=== PATIENT | female | born 1955 | race Caucasian/White ===

== ENCOUNTER → 2020-09-30 07:21 | Outpatient (CLI) | payer MEDICARE, SELFPAY ==
--- NOTE | ~2020-09-30 | MM_ITS ---
EXAMINATION: MM screening [facility] BI w melvin HISTORY: Screening mammogram TECHNIQUE: Craniocaudal and mediolateral oblique 3-D tomosynthesis images were obtained and synthetic 2-D images were generated. CAD analysis was submitted and interpreted. COMPARISON: 05/08/2019, 05/16/2010 BREAST PARENCHYMAL COMPOSITION: The breasts are almost entirely fatty. FINDINGS: There is no evidence of suspicious mass, calcification, or architectural distortion to sugg est malignancy in either breast. There has been no suspicious interval change. IMPRESSION: 1. No mammographic evidence of malignancy. 2. Recommend routine screening mammography in one year. BI-RADS Category 1: Negative Reviewed, dictated and finalized at location A.
== END ==
PROVIDERS: PCP Internal Medicine; Visit Provider Internal Medicine
DX: Z12.31 Encounter for screening mammogram for malignant neoplasm of breast (principal)
CPT/HCPCS: 77063; 77067

== ENCOUNTER 2024-10-01 13:52 | Outpatient (CLI) | payer MEDICARE, SELFPAY ==
--- NOTE | 2024-10-01 14:19 | ECG_ITS ---
Test Date: 2024-10-01 15:08:29 Measurements Intervals [place] Rate: 82 P: 58 SD: 159 QRS: 34 QRSD: 98 T: 62 QT: 385 QTc: 452 Interpretive Statements SINUS RHYTHM VOLTAGE CRITERIA FOR LVH BASELINE ARTIFACT- I, II, III, AVR, AVL, AVF, V1-V6 BORDERLINE ECG No previous ECG available for comparison Electronically Signed On 10-01-2024 15:33:33 CDT by Dane Baxter D.O.
--- OUTSIDE RECORDS SUMMARY | 2024-10-01 15:00 | XMS_ITS | Data Portability ---
Author Organization [place] - [facility] [employer], Main Office Address [address] [place] [address] Care Team Providers Care Distribution Center Supervisor Name Role Phone GINNA YOUINDER Primary Care Provider Assessment No assessment recorded. Plan of Treatment Reminders Order Date Submit Date Provider Last Modified By Organization Details Last Modified Time Details Appointments None recorded. Lab HbA1c (hemoglobin A1c), blood 2023 024 [email or web address] 82 [facility], [address], [place], [address], 5 15:18:58 CMP, serum or plasma 2023 024 [email or web address] 82 [facility], [address], [place], [address], 5 15:19:10 HbA1c (hemoglobin A1c), blood 2022 023 [email or web address] [facility], [address], [place], [address], 3 09:14:53 CMP, serum or plasma 2022 023 [email or web address] [facility], [address], [place], [address], 3 09:14:53 microalbumi n, urine 2022 023 [email or web address] [facility], [address], [place], [address], 3 09:14:53 vitamin D, 25-hydroxy, total, serum 2022 023 [email or web address] [facility], [address], [place], [address], 3 09:14:53 urinalysis, complete 2022 023 [email or web address] [facility], [address], [place], [address], 3 09:14:54 lipid panel, serum 2022 023 [email or web address] [facility], [address], [place], [address], 3 09:14:53 CBC w/ auto diff 2022 023 [email or web address] [facility], [address], [place], [address], 3 09:14:54 Referral urologist referral 2022 023 [email or web address] Analisa Araujo [facility], [address], [place], [address], 3 08:35:35 Procedures None recorded. Surgeries None recorded. Imaging MAMMO, screening, digital, bilateral 2023 024 [email or web address] [facility], [address], [place], [address], 4 09:52:44 bone density 2023 024 [email or web address] [facility], [address], [place], [address], 4 08:00:01 Medication Orders lisinopril 40 mg tablet 2023 024 [facility], [place], [address], 4 14:58:21 metformin 1,000 mg tablet [address] [facility], [address], [place], [address], 4 17:19:31 Humulin 70/30 U-100 Insulin KwikPen 100 unit/mL subcutaneou s [address] [facility], [address], Kristopher Saez, [place], [address], 4 17:19:31 OneTouch Ultra Test strips [address] [facility] [address] [facility], [address], [place], [address], 4 17:19:31 Humulin 70/30 U-100 Insulin KwikPen 100 unit/[facility] 2023 024 [facility], [address], [place], [address], 4 10:19:41 simvastatin 10 mg tablet 2023 [facility], [address], [place], [address], 4 10:19:42 lisinopril 20 mg tablet 2023 024 [facility], [address], [place], [address], 4 10:19:42 lisinopril 20 mg tablet 2022 023 [facility], [address], [place], [address], 3 10:15:44 Patient TargetsNo targets recorded. Patient Instructions Encounter Date Encounter Id Patient Instructions Last Modified By Organization Details Last Modified Time 10/30/2023 [id number] dementia rating scale-2* Not available 10/30/2023 11:45:41 alcohol misuse* Not available 10/30/2023 11:45:41 depression screening* Not available 10/30/2023 11:45:42 multi-dimensiona l health assessment questionnaire* [email or web address] Not available 10/30/2023 11:45:41 Personalized a lt Plan and Screening Recommendations Advance Directives - Do you have one? No Advance Directives - Do we have your advance directive on file in your health record? Primary Prevention/Interven tion (prevents or decreases the chance of common diseases from occurring) Smoking Risk: Non Smoker Alcohol Misuse Screening: Negative Weight: Appropriate Physical activity: Need more exercise/physical activity Nutrition: Good Average Fall Risk (screened today): Low Vaccines Pneumococcal: Ordered Recommended today Recommended today, but you have declined No further needed Influenza: Ordered Recommended today Recommended today, but you have declined Chronic Disease Risks Stroke: Low Risk Intermediate Risk I have no recommendations Act herbie diagnosis, Continue current treatment plan Heart Attack: Low risk Intermediate Risk I have no recommendations Act herbie diagnosis, Continue current treatment plan Clogging of the Arteries: Low risk Intermediate Risk I have no recommendations Act herbie diagnosis, Continue current treatment plan Diabetes: Low Risk Intermediate Risk Active diagnosis, Continue current treatment plan Secondary Prevention/Interven tion (detects treatable diseases before they may cause symptoms, disability, or ) Breast Cancer Screening with mammogram: Your next mammogram: Ordered Recommended today Cervical/Uterine/Ov kami Cancer Screening: No screening necessary Osteoporosis Screening: Your next DEXA in: Ordered Recomme nded today Date Screening Last Performed: Colon Cancer Screening: Colonoscopy Fecal Occult Blood Cologuard (DNA stool test) In: Ordered Recomme nded Recommended today, but you have declined Date Screening Last Performed: Eye Disease Screening: Dementia Risk: Low I have no recommendations Depression Screening: Negative [email or web address] Not available 10/30/2023 10:34:04 Reason for Referral Urologist Referral for Disor donna of urinary bladder Referring Physician: Fabio You, Internal Medicine, Encounter Date: 02/08/2023 Results Created Date Observation Date Name Description Value Unit Range Abnormal Flag Note LastModifiedBy Organization Detail LastModifiedTime Result Notes None recorded. Problems Name Problem SNOMED Code Status Onset Date Resolution Date Notes Provider Name and Address Organization Details Recorded Time Backache 717388241 Active Not Available [facility] 3 15:43:45 Abnormal weight loss 671148604 Completed Not Available [facility] 3 15:43:45 Type 2 diabetes mellitus without complicati on 835499231 Active 2021 Salina soni, RENAYJudy null, [facility] [employer] [facility] 3 09:44:15 Vitamin D deficiency 89566086 Completed Not Available [facility] 3 15:43:45 Diabetes mellitus 26269900 Active Not Available [facility] 3 15:43:45 Hyperlipid emia 06270647 Active 2022 Fabio You MD [address], [address], [address] , [facility] [employer] [facility] [employer] 3 10:12:13 Disorder of urinary bladder 49635746 Active 2022 Fabio You MD [facility], [address], [address] [place] [address] , [employer] [facility] 3 10:12:41 Essential hypertensi on 13767311 Active 2022 Fabio You MD [facility], [address], [address] , [facility] [employer] [facility] [employer] [facility] 3 10:13:24 Notes:Some problems listed i n Documents: #[id number], #[id number] could not be added to this patient's chart. Please review these documents and add these problems to the patient's chart manually as needed. Problem Notes None recorded. Procedures Surgical History Date Name Laterality Status Provider Name and Address Organization Details Recorded Time 10/30/19 24 Medicare Wellness CPT Code, subsequent completed Ana Cristina Hazel RN [facility] [employer] 10/30/2023 10:27:21 05/15/20 19 Most Recent Bone Density completed Not Available [facility] 08/08/2022 15:41:32 Appendectomy completed Not Available [facility] 08/08/2022 15:41:32 Imaging Results None recorded. Procedure Notes None recorded. Medical Equipment None Reported. Allergies No known drug allergies Medications Name Sig Start Date Stop Date Status Note LastModified by Organization Details LastModified Time Augmentin 875 mg-125 mg tablet Take 1 tablet every 12 hours by oral route. 11/25 completed Not Available Not Available Not Available glyburide 5 mg tablet Take 2 tablets twice a day by oral route. active Not Available Not Available No t Available Keflex 500 mg capsule Take 1 capsule 4 times a day by oral route for 7 days. 01/20 completed Not Available Not Available Not Available lisinopril 20 mg tablet TAKE 1 TABLET BY MOUTH ONCE DAILY active Not Available Not Available No t Available simvastatin 10 mg tablet TAKE 1 TABLET BY MOUTH ONCE DAILY active Not Available Not Available No t Available sulfamethox azole 800 mg-trimetho prim 160 mg tablet TAKE 1 TABLET BY MOUTH TWICE DAILY 10/29 completed Not Available Not Available Not Available OneTouch Ultra Test strips USE NEW STRIP TO CHECK GLUCOSE TWICE DAILY active Not Available Not Available No t Available metformin 1,000 mg tablet TAKE 1 TABLET BY MOUTH TWICE DAILY . 2023 active Not Available Not Available Not Avai lable diclofenac sodium 75 mg tablet,lia yed release TAKE 1 TABLET BY MOUTH TWICE DAILY NEEDED active Not Available Not Available No t Available Vitamin D2 1,250 mcg (50,000 unit) capsule Take 1 capsule every week by oral route for 90 days. 04/18 completed Not Available Not Available Not Available lisinopril 40 mg tablet Take 1 tablet every day by oral route. 2023 active Not Available Not Available Not Avai lable pen needle, diabetic 31 gauge x 5/16 USE TWICE DAILY DIRECTED active Not Available Not Available No t Available Novolog Mix 70-30 FlexPen U-100 Insulin 100 unit/mL subcutaneou s pen INJECT 10 UNITS UNDER THE SKIN IN THE MORNING AND 5 UNITS IN THE EVENING-P LEASE CALL TO MERYLUEL A FOLLOW UP APPOINTME NT active Not Available Not Available No t Available Lancets,Thi n Take 1 each twice a day by miscell. route. 01/22 completed Not Available Not Available Not Available Humalog Mix 75-25 KwikPen U-100 insulin 100 unit/mL subcutaneou s pen active Not Available Not Available Not Available OneTouch Delica Lancets 33 gauge 01/22 completed Not Available Not Available Not Available Kombiglyze XR 5 mg-1,000 mg tablet,exte nded release active Not Available Not Available Not Available Humulin 70/30 U-100 Insulin KwikPen 100 unit/mL subcutaneou s INJECT 25 UNITS SUBCUTANE OUSLY IN THE MORNING AND 19 UNITS IN THE EVENING. 2023 active Not Available Not Available Not Avai lable OneTouch Ultra Blue Test Strip 01/22 completed Not Available Not Available Not Available OneTouch Ultra2 Meter active Not Available Not Available Not Available FreeStyle Andry 3 Sensor device USE DIRECTED active Not Available Not Available No t Available FreeStyle Andry 3 Alpine USE DIRECTED active Not Available Not Available No t Available Vitals Date Recorded Body mass index (BMI) Body height Oxygen saturation Oxygen saturation in Arterial blood by Pulse oximetry Heart rate Body weight Systolic blood pressure Diastolic blood pressure Provider Name and Address Organization Details Last Updated DateTime 2 23.3 kg/m2 162.56 cm 98 % 98 % 88 /min 09353.5 6 g 134 mm[Hg] 70 mm[Hg] Not Available [facility] 3 15:43:06 Date Recorded Body mass index (BMI) Body height Oxygen saturation Oxygen saturation in Arterial blood by Pulse oximetry Pain severity - 0-10 verbal numeric rating [Score] - Reported Heart rate Body temperature Body weight Systolic blood pressure Diastolic blood pressure Provider Name and Address Organization Details Last Updated DateTime 3 23.5 kg/m2 162.56 cm 99 % 99 % 0 97 /min 97.3 [degF] 99449.1 5 g 144 mm[Hg] 74 mm[Hg] Not Available [facility] 3 15:43:06 Date Recorded Body height Body temperature Heart rate Oxygen saturation Oxygen saturation in Arterial blood by Pulse oximetry Body mass index (BMI) Body weight Systolic blood pressure Diastolic blood pressure Provider Name and Address Organization Details Last Updated DateTime 3 162.56 cm 97.6 [degF] 84 /min 98 % 98 % 23.7 kg/m2 67471.7 5 g 160 mm[Hg] 86 mm[Hg] Salina carrillo [facility] [employer] [facility] 3 09:48:43 Date Recorded Body height Body mass index (BMI) Body weight Body temperature Heart rate Oxygen saturation Oxygen saturation in Arterial blood by Pulse oximetry Systolic blood pressure Diastolic blood pressure Provider Name and Address Organization Details Last Updated DateTime 4 162.56 cm 23.8 kg/m2 72076.1 8 g 97.9 [degF] 80 /min 99 % 99 % 148 mm[Hg] 80 mm[Hg] Carmelina Montenegro [facility] [employer] [facility] 4 09:55:32 Date Recorded Pain severity - 0-10 verbal numeric rating [Score] - Reported Provider Name and Address Organization Details Last Updated DateTime 10/30/2023 0 Ana Cristina Hazel RN [facility] [employer] [facility] 10/30/2023 10:27:38 Date Recorded Body height Body mass index (BMI) Body weight Body temperature Heart rate Oxygen saturation Oxygen saturation in Arterial blood by Pulse oximetry Systolic blood pressure Diastolic blood pressure Provider Name and Address Organization Details Last Updated DateTime 4 162.56 cm 24.2 kg/m2 91890.5 2 g 97.4 [degF] 80 /min 98 % 98 % 150 mm[Hg] 68 mm[Hg] Salina carrillo [facility] [employer] [facility] 4 14:26:24 Social History Question Answer Notes LastModified by Organizat ion Details LastModified Time Tobacco Smoking Status Never Smoker Not Available [facility] 08/08/2022 15:41:30 Do You Have An Advance Directive? No [email or web address] Information not available 10/30/2023 What Is Your Level Of Alcohol Consumption? Occasional [id number] Information not available 08/08/2022 Are You Blind Or Do You Have Difficulty Seeing? No [email or web address] Information not available 10/30/2023 What Is Your Level Of Caffeine Consumption? Moderate [id number] Information not available 08/08/2022 Are You Deaf Or Do You Have Serious Difficulty Hearing? No [email or web address] Information not available 10/30/2023 What Type Of Diet Are You Following? REGULAR [email or web address] Information not available 10/30/2023 What Is Your Occupation? Retired [id number] Information not available 08/08/2022 Have There Been Any Changes To Your Family Or Social Situation? No [email or web address] Information not available 10/30/2023 What Is The Fluoride Status Of Your Home? Unknown [email or web address] Information not available 10/30/2023 Where Do You Live? SingleLevelHouse [email or web address] Information not available 10/30/2023 Are You Able To Care For Yourself? Yes [email or web address] Information not available 10/30/2023 Are You Blind Or Do Yo Have Difficulty Seeing? No [email or web address] Information not available 10/30/2023 Are You Deaf Or Do You Have Serious Difficulty Hearing? No [email or web address] Information not available 10/30/2023 Live Alone Of With Others? With Others [email or web address] Information not available 10/30/2023 What Was The Date Of Your Most Recent Tobacco Screening? 10/30/2023 [email or web address] Information not available 10/30/2023 Do You Have Any Pets? Yes [email or web address] Information not available 10/30/2023 Do You Use Your Seat Belt Or Car Seat Routinely? Yes [email or web address] Information not available 10/30/2023 Do You Have Smoke And Carbon Monoxide Detectors In Your Home? Yes [email or web address] Information not available 10/30/2023 Sex: Unknown Functional Status Question Answer Note LastModified by Organizat ion Details LastModified Time Do you have difficulty walking or climbing stairs? No [email or web address] Information not available 10/30/2023 Do you have transportation difficulties? No [email or web address] Information not available 10/30/2023 Are you able to walk? YESWOREST [email or web address] Information not available 10/30/2023 Do you have difficulty doing errands alone? No [email or web address] Information not available 10/30/2023 Are you able to care for yourself? Yes [email or web address] Information n ot available 10/30/2023 Do you have difficulty dressing or bathing? No [email or web address] Information not available 10/30/2023 What is your exercise level? Occasional [email or web address] Information not available 10/30/2023 Mental Status Question Answer Note LastModified by Organization D etails LastModified Time Do you have difficulty concentrating, remembering or making decisions? No [email or web address] Information no t available 10/30/2023 Family History Relationship Description Onset Age of this Age Resolved Age Notes LastModified by Organization Details LastModified Time Mother Diabetes mellitus [id number] [id number] Not available 08/08/2022 15:41:32 Mother Heart disease [id number].601 [id number] Not available 08/08/2022 15:41:32 Sister Diabetes mellitus MIGRATION.230 [id number] Not available 08/08/2022 15:41:32 Sister Stented coronary artery [email or web address].054 [id number] Not available 08/08/2022 15:41:33 Father Heart disease [id number].644 [id number] Not available 08/08/2022 15:41:33 Medical History No medical history recorded. Gynecological History Statement/Question Response Date of Last Pap Date of Last Mammogram 09/30/2020 Date of Last Colonoscopy Most Recent Bone Density 05/15/2019 Obstetrics History GPAL:G 0 P 0 0 0 0 Immunizations Vaccine Type Date Status Note Provider Nam e and Address Organization Details Recorded Time pneumococcal polysaccharide PPV23 1 completed Not Available [facility] 08/08/2022 15:46:08 Pneumococcal conjugate PCV 13 0 completed Not Available [facility] 02/08/2023 09:35:56 pneumococcal polysaccharide PPV23 4 completed Not Available [facility] 08/08/2022 15:46:08 Past Encounters Encounter ID Performer Location Encounter Start Date Encounter Closed Date Diagnosis/Indication Diagnosis SNOMED-CT Code Diagnosis ICD10 Code Diagnosis Note [id number] [facility] [address] [place] [address] 11/25/2020 00:00:00 11/25/2020 13:14:17 [id number] [facility] [address] [place] [address] 05/26/2021 00:00:00 05/26/2021 14:28:39 [id number] [facility] [address] [place] [address] 01/05/2022 00:00:00 01/05/2022 13:09:26 [id number] [facility] [address] [facility] [place] [facility] [place] [address] 07/27/2022 00:00:00 07/27/2022 11:37:57 [id number] Fabio You MD [facility] Internal [facility] [address] [facility] [place] [address] 02/08/2023 09:34:30 02/08/2023 10:29:08 Diabetes mellitus 99002184 E11.9 under control Backache 499565530 M54.9 meds help Adult heal th examination 348430949 Z00.00 pap- not yetMammogr am-10/01/19 21Dexa- 05/2019Col onoscopy- does not want, had neg cologuard in 01/2873RBS77- 08/06/2013, and todayPrevn ar - 07/31/2019 ye exam- yearlyCOVI D Vacc- undecided Hyperlipidemia 16509372 E78.5 Disorder o f urinary bladder 51792480 N32.9 will write sed bladder, need urology Essential hypertension 47209429 I10 Long-term drug therapy 368412084 Z79.403 [id number] Fabio You MD [facility] [address] [facility] [place] [address] 10/30/2023 09:51:27 10/30/2023 10:26:35 Diabetes mellitus 92483195 E11.9 NOT under control, to try Andry, take insulin as prescribed Backache 876786843 M54.9 meds help Adult heal th examination 491299998 Z00.00 Mammogram- 09/30/2020 exa- 05/2019Col onoscopy- does not want, had neg cologuard in 01/2870NVU35- 05/30Prevn ar - 07/31/2019e ye exam- yearlyCOVI D Vacc- undecided Hyperlipidemia 17451703 E78.5 Disorder o f urinary bladder 45396912 N32.9 f/u with urology Essential hypertension 00092882 I10 does not want dose adjustment Postmenopausal state 764 08613 Z78.0 Screening mammography 24 474724 Z12.31 Screening for disorder 062647760 Z13.9 [id number] Fabio You MD [facility] [address] [place] [address] 04/02/2024 14:22:30 04/02/2024 15:00:16 Diabetes mellitus 55167177 E11.9 NOT under control, advised to watch diet, dose adjustment after the labs Backache 815655202 M54.9 meds help Adult heal th examination 374512391 Z00.00 Mammogram- 09/30/2020 - Has not doneDexa- 05/2019- Has not doneColono scopy- does not want, had neg cologuard in 01/2852POI75- 05/30Prevn ar 13- 07/31/2019F DEYANIRA- Declined- 2023eye exam- yearlyCOVI D Vacc- undecided Hyperlipidemia 32056900 E78.5 under control Disorder o f urinary bladder 85464199 N32.9 needs f/u urology Essential hypertension 40429143 I10 ^ the dose Type 2 conrado betes mellitus without complication 700548418 E11.9 Health Concerns Section Related Observation LastModified by Organization Detai ls LastModified Time None Recorded Concern Status LastModified by Organization Details LastModified Time None Recorded Advance Directives Directive N: Payers Encounter Date Sequence Insurance Name Policy Number Policy Mariscal Covered Member ID Mariscal Member ID Guarantor Name 02/08/2023 1 [facility] (MEDICARE REPLACEMENT/A DVANTAGE - HMO) [id number] Stacy Graves [id number] Stacy Graves 10/30/2023 1 [facility] (MEDICARE REPLACEMENT/A DVANTAGE - HMO) [id number] Stacy Graves [id number] Stacy Graves 04/02/2024 1 [facility] (MEDICARE REPLACEMENT/A DVANTAGE - HMO) [id number] Stacy Graves [id number] Stacy Graves Notes Date Note Type Note Provider Name and Address Organization Details Recorded Time 02/08/2023 text/html Here for routine f/u, compliant to medsNeeds labs, [facility]- Accu checks are good according to her runs around 130A1c -7.6 on 08/2022No neuropathy , DM eye exam- 12/07/21 (in chart)Meds- humulin 70/30 25 U qam/ 19 U qPM , metformin 1,000 mg bidHyperlipidemia- on meds, labs needed, watching dietmeds- simvastatin 10 mg qd Back pain- meds help, takes it as neededMeds- diclofenac 75 mg prnVit d Def- otc BP IS HIGH TODAY, WAS LITTLE HIGH IN THE PAST she has prolapsed bladder , getting worse, has to go to bathroom frequently Fabio You MD [address], [address], [place], [address], [employer] 02/08/2023 10:18:32 10/30/2023 text/html Here for routine f/u, compliant to meds DM- Accu checks are good according to her runs around 140A1c -8.3 on 10/18/23. Has been having drops in the 40's and would like to have CGM.No neuropathy , DM eye exam- due, will make apptMeds- Humulin 70/30 25 U qam/ 19 U qPM , ( not taking insulin as prescribed due to hypoglycemia ) Metformin 1,000 mg bid Hypertension- b/p is a little high today 148/80, on meds, DOES NOT WANT TO CHANGE THE DOSEMeds- Lisinopril 20mg dailyHyperlipidemia- on meds, labs needed, watching dietmeds- Simvastatin 10 mg qd Back pain- meds help, takes it as neededMeds- Diclofenac 75 mg prnVit d Def- otc Prolapsed bladder , getting worse, has to go to bathroom frequently. Has seen Urology and went through physical therapy, Fabio You MD [address], [place], [address], [employer] 10/30/2023 11:45:46 04/02/2024 text/html Here for routine f/u, compliant to meds Has not done the Mammogram of Bone Density. Has Grand Jury Every X 4 months will scheduled after things settle down DM- Accu checks are good according to her runs around 145A1c -8.3 in 10/31Some hypoglycemiaNo neuropathy ,DM eye exam- due, will make apptMeds- Humulin 70/30 25 U qam/ 19 U qPM , ( not taking insulin as prescribed due to hypoglycemia ) Metformin 1,000 mg bid Hypertension- b/p is a highMeds- Lisinopril 20mg dailyHyperlipidemia- on meds, watching dietmeds- Simvastatin 10 mg qd Back pain- meds help, takes it as neededMeds- Diclofenac 75 mg prnVit d Def- otc Prolapsed bladder , getting worse, has to go to bathroom frequently. Has seen Urology and went through physical therapy, Fabio You MD [address] [facility], [facility] [address], [place], [address], [facility] 04/02/2024 14:58:19 OBGyn Episode No OBEpisode recorded.
[2024-10-01 15:25] LABS: Basophils Percent Auto 0.5 % (0.2-1.2); Eosinophils Absolute Auto 0.3 K/mm3 (0-0.3); Eosinophils Percent Auto 4.7 % (0-4.4); Hematocrit 35.8 % (37.0-47.0); Hemoglobin 10.8 g/dL (12.0-15.0); Immature Granulocyte Absolute 0.01 K/mm3 (0.00-0.031); Immature Granulocyte Percent A 0.2 % (0-0.5); Lymphocytes Absolute Auto 1.82 K/mm3 (0.9-3.2); Lymphocytes Percent Auto 27.7 % (18.3-44.2); Mean Corpuscular HGB Conc 30.2 g/dl (32-36); Mean Corpuscular Volume 86.3 fl (80-100); Mean Platelet Volume 10.1 fl (7.4-10.4); Monocytes Absolute Auto 0.5 K/mm3 (0.1-0.6); Monocytes Percent Auto 7.9 % (2.6-8.5); Neutrophils Absolute Auto 3.9 K/mm3 (1.3-6.7); Platelet Count Result 289 k/mm3 (150-375); Red Blood Count 4.15 M/mm3 (4.2-5.4); Red Cell Distribution Width 14.8 % (11.5-14.5); White Blood Count 6.6 K/mm3 (4.5-10.0)
[2024-10-01 15:45] LABS: Alanine Aminotransferase 19 U/L (6-35); Albumin Level 4.5 g/dL (3.5-5.1); Alkaline Phosphatase 66 U/L (38-126); Anion Gap 12 mmol/L (4-12); Aspartate Amino Transferase 38 U/L (14-36); Bilirubin,Total 0.2 mg/dL (0.2-1.3); Blood Urea Nitrogen 12 mg/dL (7-17); Carbon Dioxide 24 mmol/L (22-30); Chloride 106 mmol/L (98-107); Estimated Glomerular Filt Rate > 60; Glucose 63 mg/dL (65-110); Potassium 4.4 mmol/L (3.4-5.0); Sodium 142 mmol/L (137-145)
[2024-10-01 15:47] LABS: INR 0.9; Prothrombin Time 12.9 Seconds (11.1-14.7)
[2024-10-01 15:48] LABS: Partial Thromboplastin Time 32.6 Seconds (22.3-36.8)
== END 2024-10-01 13:53 | disposition home or self-care (01) ==
PROVIDERS: PCP Internal Medicine; Visit Provider Urology
DX: N81.4 Uterovaginal prolapse, unspecified (principal); I10 Essential (primary) hypertension; E11.9 Type 2 diabetes mellitus without complications
CPT/HCPCS: 36415; 80053; 85025; 85610; 85730; 86850; 86900; 86901; 93005

== ENCOUNTER 2024-12-01 13:57 | Outpatient (CLI) | payer MEDICARE, SELFPAY ==
[2024-12-01 14:47] LABS: Basophils Percent Auto 0.5 % (0.2-1.2); Eosinophils Absolute Auto 0.3 K/mm3 (0-0.3); Eosinophils Percent Auto 5.5 % (0-4.4); Hematocrit 33.9 % (37.0-47.0); Hemoglobin 10.4 g/dL (12.0-15.0); Immature Granulocyte Absolute 0.01 K/mm3 (0.00-0.031); Immature Granulocyte Percent A 0.2 % (0-0.5); Lymphocytes Absolute Auto 2.59 K/mm3 (0.9-3.2); Lymphocytes Percent Auto 43.2 % (18.3-44.2); Mean Corpuscular HGB Conc 30.7 g/dl (32-36); Mean Corpuscular Hemoglobin 25.8 pg (26-34); Mean Corpuscular Volume 84.1 fl (80-100); Monocytes Absolute Auto 0.5 K/mm3 (0.1-0.6); Monocytes Percent Auto 8.2 % (2.6-8.5); Neutrophils Absolute Auto 2.6 K/mm3 (1.3-6.7); Neutrophils Percent Auto 42.4 % (45.5-73.1); Platelet Count Result 307 k/mm3 (150-375); Red Blood Count 4.03 M/mm3 (4.2-5.4); Red Cell Distribution Width 14.6 % (11.5-14.5)
[2024-12-01 14:50] LABS: Alanine Aminotransferase 17 U/L (6-35); Albumin Level 4.3 g/dL (3.5-5.1); Alkaline Phosphatase 59 U/L (38-126); Anion Gap 11 mmol/L (4-12); Aspartate Amino Transferase 27 U/L (14-36); Bilirubin,Total 0.2 mg/dL (0.2-1.3); Blood Urea Nitrogen 10 mg/dL (7-17); Calcium 9.5 mg/dL (8.4-10.2); Carbon Dioxide 22 mmol/L (22-30); Chloride 105 mmol/L (98-107); Estimated Glomerular Filt Rate > 60; Glucose 173 mg/dL (65-110); Potassium 4.3 mmol/L (3.4-5.0); Sodium 138 mmol/L (137-145); Total Protein 7.4 g/dL (6.3-8.2)
[2024-12-01 14:52] LABS: INR 0.9; Prothrombin Time 12.4 Seconds (11.1-14.7)
[2024-12-01 14:53] LABS: Partial Thromboplastin Time 29.7 Seconds (22.3-36.8)
== END 2024-12-01 13:58 | disposition home or self-care (01) ==
PROVIDERS: PCP Internal Medicine; Visit Provider Urology
DX: N39.3 Stress incontinence (female) (male) (principal); N81.4 Uterovaginal prolapse, unspecified; Z01.818 Encounter for other preprocedural examination
CPT/HCPCS: 36415; 80053; 85025; 85610; 85730; 86850; 86900; 86901

== ENCOUNTER 2024-12-07 01:51 | Day surgery (SDC) | payer MEDICARE, SELFPAY ==
[2024-10-01 14:27] VITALS: PULSE 86; RESP 16; TEMP 36.1; O2SAT 100; BMI 23.8
--- NOTE | 2024-10-01 14:40 | PC.NURSE ---
Addendum entered by Jennifer Horner RN 11/25/24 13:47: Pt called back and rescheduled w new date and time, meds reconciled, and no change in status. Pt aware needs labs redrawn, reviewed all below w pt and answered questions. Report to the Outpatient Waiting Room, entrance under the green pavilion located off [facility], at time _10:00am on date _12/07/24 . Planned Procedure Time: _12:00pm .? Time changes happen often and if your time is changed the preop area will call you the afternoon before. - You and your visitor will be asked to self-screen and do not enter if you have any COVID symptoms. Please call surgeon if you need to reschedule. - A mask is optional within the hospital at this time. Patients may have clear liquids (water, carbonated beverages, clear teas, apple juice) until 3 hours prior to surgery with a maximum of 20 ounces. - No food from midnight until time of surgery and no smoking, or chewing tobacco (or any form of nicotine). No chewing gum, candy or mints. (0900am) Take only the following medications with a SIP of water on the morning of surgery: None DO NOT STOP ANY OF YOUR OTHER PRESCRIPTION MEDICATIONS PRIOR TO SURGERY EXCEPT THE FOLLOWING Hold all vitamins and supplements for 7 days per anesthesiologist. Date to take last dose is 11/28/24 Medications to discontinue per physician ____NO aspirin containing products for [address] Young, ( Aspirin, Motrin, Aleve, Advil) Date to take last dose__11/28/24 Original Note: Report to the Outpatient Waiting Room, entrance under the green pavilion located off [facility] [address], at time _0930am on date _10/12/24 . Planned Procedure Time: _1130am .? Time changes happen often and if your time is changed the preop area will call you the afternoon before. - You and your visitor will be asked to self-screen and do not enter if you have any COVID symptoms. Please call surgeon if you need to reschedule. - A mask is optional within the hospital at this time. Patients may have clear liquids (water, carbonated beverages, clear teas, apple juice) until 3 hours prior to surgery with a maximum of 20 ounces. - No food from midnight until time of surgery and no smoking, or chewing tobacco (or any form of nicotine). No chewing gum, candy or mints. (0830am) Take only the following medications with a SIP of water on the morning of surgery: None DO NOT STOP ANY OF YOUR OTHER PRESCRIPTION MEDICATIONS PRIOR TO SURGERY EXCEPT THE FOLLOWING Hold all vitamins and supplements for 7 days per anesthesiologist. Date to take last dose is 10/04/24 Medications to discontinue per physician ____NO aspirin containing products for [address] Young, ( Aspirin, Motrin, Aleve, Advil) Date to take last dose__10/04/24 Please no make-up, nail khmer, hairspray, perfume, deodorant, or body powder the day of surgery.? No jewelry (including any body piercings) or valuables the day of surgery, leave them at home.? Please take a shower or bath the night before, or the morning of, surgery with an antibacterial soap.( DIAL) ? Wear comfortable, loose fitting clothing.? Overnight bag, robe, cell phone wood pole treater w phone if you want that - Jewelry must be removed prior to entering the operating room.? Rings and piercings that are not removed may be cut off. - The hospital will not accept responsibility for valuables.? - Please leave all valuables, including medications, at home the day of surgery. If you are going home after surgery, a licensed trolley coach driver must drive you home.? - NO public transportation without another adult if you receive anesthesia. - We recommend that an adult stay with you for 24 hours following discharge. - We also recommend that you do not drive, make important decision, drink alcoholic beverages, or take any drugs that were not prescribed by your health care provider for at least 24 hours after your discharge time. Follow any additional instructions given to you from your surgeon. Telephone instructions given to __Patient and asked if any additional questions and then verbalized understanding. Patient advised to call surgeon office or pre surgery nurse liaison [phone] if any additional questions.
--- NOTE | 2024-10-09 12:03 | PM.IMHP ---
H&P: HPI History of Present Illness Date/Time: 10/09/24 12:03 Chief Complaint: Prolapse and incontinence Narrative: Uterine prolapse and stress in 6 Review of Systems Review of Systems: All systems reviewed & are unremarkable except as noted in HPI and below [facility] Social History Social History Smoking status: Never smoker Alcohol intake: current Alcohol use details: 1 per month Substance use: never Living arrangements: with family Additional living arrangements comments: Sister Spiritual care concerns: No Meds Home Medications and Allergies Home Medications ?Medication ?Instructions ?Recorded ?Confirmed ?Type insulin NPH-regular 70-30 U-100 25 unit subcut BID diabetes 10/01/24 10/01/24 History insulin 100 unit/mL subcutaneous pen (Humulin 70/30 U-100 KwikPen) lisinopril 40 mg tablet 40 mg PO DAILY 10/01/24 10/01/24 History metformin 1,000 mg tablet 1,000 mg PO BID 10/01/24 10/01/24 History ocbitdse-ola-bdxuaz-choline-bioflavonoids 1 tablet PO DAILY 10/01/24 10/01/24 History 111 mg-111 mg-100 mg tablet simvastatin 10 mg tablet 10 mg PO QPM 10/01/24 10/01/24 History Allergies Allergy/AdvReac Type Severity Reaction Status Date / Time No Known Allergies Allergy Verified 10/01/24 14:21 Exam Narrative: Cystocele beyond the introitus. [place] at +2. urethral mobility Assessment and Plan Assessment and plan (1) Uterine prolapse: Code(s): N81.4 - Uterovaginal prolapse, unspecified Status: Acute (2) CEE (stress urinary incontinence, female): Code(s): N39.3 - Stress incontinence (female) (male) Status: Acute Plan Robotic colpopexy and urethral sling. Risks, benefits, alternatives outlined in office chart
--- OUTSIDE RECORDS SUMMARY | 2024-10-12 02:12 | XMS_ITS | Data Portability ---
Author Organization [facility] [place] Address [address] [place] [address] Assessment No assessment recorded. Plan of Treatment Reminders Order Date Submit Date Provider Last Modified By Organization Details Last Modified Time Details Appointments Robotic [facility] 2024 11:30A Clyde HOUSER MD Not available Not available Not available Lab None recorded. Referral None recorded. Procedures None recorded. Surgeries laparosco pic supracerv ical hysterect pollo w/bilater al salpingo- oopherect pollo, robot assisted (SURG) [phone] [facility] [place], [address], [place], [address], 10/08/2024 15:13:04 Imaging None recorded. Medication Orders None recorded. Patient TargetsNo targets recorded. Patient InstructionsNo instructions recorded. Reason for Referral None Reported. Procedures Surgical History Date Name Laterality Status Provider Name and Address Organization Details Recorded Time procedure on appendix completed Renetta Rodarte [facility] 07/17/2024 10:17:41 Imaging Results None recorded. Procedure Notes None recorded. Medical Equipment None Reported. Allergies No known drug allergies Medications Name Sig Start Date Stop Date Status Note LastModified by Organization Details LastModified Time lisinopril 20 mg tablet TAKE 1 TABLET BY MOUTH ONCE DAILY 10/03 completed Not Available Not Available Not Available simvastatin 10 mg tablet TAKE 1 TABLET BY MOUTH ONCE DAILY 10/03 completed Not Available Not Available Not Available sulfamethox azole 800 mg-trimetho prim 160 mg tablet TAKE 1 TABLET BY MOUTH TWICE DAILY 10/03 completed Not Available Not Available Not Available OneTouch Ultra Test strips USE A NEW STRIP TO CHECK GLUCOSE TWO TIMES DAILY 10/03 completed Not Available Not Available Not Available metformin 1,000 mg tablet TAKE 1 TABLET BY MOUTH TWICE DAILY active Not Available Not Available No t Available lisinopril 40 mg tablet TAKE 1 TABLET BY MOUTH ONCE DAILY active Not Available Not Available No t Available Humulin 70/30 U-100 Insulin KwikPen 100 unit/mL subcutaneou s INJECT 25 UNITS SUBCUTANE OUSLY IN THE MORNING AND 19 UNITS IN THE EVENING active Not Available Not Available No t Available FreeStyle Andry 3 Sensor device USE DIRECTED 07/17 completed Not Available Not Available Not Available FreeStyle Andry 3 [place] USE DIRECTED 07/17 completed Not Available Not Available Not Available Vitals Date Recorded Body weight Body mass index (BMI) Body height Systolic blood pressure Diastolic blood pressure Provider Name and Address Organization Details Last Updated DateTime 07/17/2024 89413.34 g 23.9 kg/m2 162.56 cm 149 mm[Hg] 85 mm[Hg] Renetta Rodarte [facility] 10:28:24 Date Recorded Body height Body mass index (BMI) Body weight Systolic blood pressure Diastolic blood pressure Provider Name and Address Organization Details Last Updated DateTime 10/03/2024 162.56 cm 23.5 kg/m2 49335.15 g 170 mm[Hg] 83 mm[Hg] Seema Ricky [facility] 09:38:45 Social History Question Answer Notes LastModified by Organizat ion Details LastModified Time Tobacco Smoking Status Never Smoker Renetta Rodarte [facility], [facility] 07/17/2024 10:30:32 Are You Blind Or Do You Have Difficulty Seeing? No [email or web address] Information n ot available 07/17/2024 In The 14 Days Before Symptom Onset, Have You Had Close Contact With A Laboratory-confirm ed COVID-19 While That Case Was Ill? No [email or web address] Information n ot available 07/17/2024 In The 14 Days Before Symptom Onset, Have You Had Close Contact With A Person Who Is Under Investigation For COVID-19 While That Person Was Ill? No [email or web address] Information not available 07/17/2024 Have You Been To An Area Known To Be High Risk For COVID-19? No [email or web address] Information not available 07/17/2024 Are You Currently Employed? Yes [email or web address] Information not available 07/17/2024 Are You Deaf Or Do You Have Serious Difficulty Hearing? No [email or web address] Information not available 07/17/2024 Do You Use Your Seat Belt Or Car Seat Routinely? Yes [email or web address] Information not available 07/17/2024 Do You Have Smoke And Carbon Monoxide Detectors In Your Home? Yes Information not available 07/17/2024 Do You Use Any Illicit Or Recreational Drugs? No [email or web address] Information not available 07/17/2024 Do You Use Sunscreen Routinely? Yes [email or web address] Information not available 07/17/2024 Sex: Unknown Functional Status Question Answer Note LastModified by Organizat ion Details LastModified Time Do you have difficulty walking or climbing stairs? No [email or web address] Information not available 07/17/2024 Are you able to walk? [email or web address] Information not available 07/17/2024 Are you able to care for yourself? Yes Information not available 07/17/2024 Do you have difficulty dressing or bathing? No [email or web address] Information not available 07/17/2024 Mental Status None recorded. Family History Relationship Description Onset Age of this Age Resolved Age Notes LastModified by Organization Details LastModified Time Mother Heart disease [email or web address] Not available 2024 10:16:51 Mother Diabetes mellitus [email or web address] Not available 2024 10:16:58 Father Heart disease [email or web address] Not available 2024 10:16:51 Medical History Condition Response Kidney or Bladder Problems Y Diabetes Y Hypertension Y Gynecological History Statement/Question Response Abnormal Pap N Date of Last Mammogram Was last menstrual period normal Y STIs/STDs N HPV Vaccine N Current Control Method Menopause Are cycles usually normal Y Date of Last Colonoscopy Most Recent Bone Density Sexually Active? N Menses Monthly N Date of DEXA bone scan Age of first menstrual cycle 12 Date of Last Pap Smear Sexual Problems? N LMP Unknown Obstetrics History GPAL:G 1 P 0 0 0 1 Type Value Living 1 Total 1 Past Encounters Encounter ID Performer Location Encounter Start Date Encounter Closed Date Diagnosis/Indication Diagnosis SNOMED-CT Code Diagnosis ICD10 Code Diagnosis Note [id number] SUMA SANON MD [place] [address] [address] 07/17/2024 10:03:13 07/20/2024 11:40:31 Prolapse of female genital organs 04872253 N81.9 - grade 3 cystocele, grade 2 apical prolapse- no issues with emptying bladder or stress incontinen ce- does reports urge incontinen ce- patient seeing Dr. Young, urodynamic s scheduled for next week- if surgery recommende d, will have patient follow up with Dr. Houser for pre op appointmen t [id number] Amrit Houser MD [place] [address] [address] 10/03/2024 09:32:18 10/03/2024 10:01:47 Uterovaginal prolapse 53508423 N81.4 this patient is a 69-year-ol d female with pelvic organ prolapse. We have agreed to perform laparoscop ic supracervi yuliet hysterecto my bilateral salpingo-o ophorectom y with robotic assistance . She understand s the risks, benefits, and alternativ es. She has completed the informed consent process and is ready to proceed. Health Concerns Section Related Observation LastModified by Organization Detai ls LastModified Time None Recorded Concern Status LastModified by Organization Details LastModified Time None Recorded Advance Directives Directive None Recorded Payers Encounter Date Sequence Insurance Name Policy Number Policy Mariscal Covered Member ID Mariscal Member ID Guarantor Name 07/17/2024 1 [facility] (MEDICARE REPLACEMENT/A DVANTAGE - HMO) [id number] Stacy Graves [id number] Stacy Graves 10/03/2024 1 [facility] (MEDICARE REPLACEMENT/A DVANTAGE - HMO) [id number] Stacy Graves [id number] Stacy Graves Notes Date Note Type Note Provider Name and Address Organization Details Recorded Time 07/17/2024 text/html Patient presents to discuss pelvic organ prolapse. She was previously seen by urology who noted a cystocele, however now are concerned she may have further prolapse. She has been to pelvic floor PT without improvement. She reports a bulging sensation, as well as urge incontinence. Denies incomplete emptying or stress incontinence. No constipation or issues with bowel movement. No vaginal bleeding or discharge. PMH: hypertension, T2DM SUMA SANON MD [address], [place], [address], [facility] 07/17/2024 16:51:48 10/03/2024 text/html this patient is a 69-year-old female with pelvic organ prolapse. We have agreed to perform laparoscopic supracervical hysterectomy bilateral salpingo-oophorecto my with robotic assistance. She understands the risks, benefits, and alternatives. She has completed the informed consent process and is ready to proceed. The patient understands the procedure. The procedure was described to the patient in great detail. the patient also understands the risks. The risks were also explained in detail. She understands that injuries May occur during surgery. She understands these injuries can result in hospitalization, more surgery, and severe illness. She understands there is risk of hemorrhage and infection. Amrit Houser MD [address], [place], [address], [facility] 10/03/2024 10:00:40 OBGyn Episode Ob Episode Information Episode Created Date Number of Fetuses Patient Bloodtype Patient rh Status Prepregnancy Weight lbs Domestic Partner Domestic Partner Phone Father Name Boiler Coverer Status 07/17/19 25 1 CLOSED Fetus Data First Name Last Name Admitted to NICU Weight (g) Sex Living Outcome Pediatric Complications Fetus ID Race Codes Race Delivery Type F Full Term [id number] Vaginal Delivery Donald Calculation Initial Donald Date Initial Exam Date Initial Exam Provider Initial Ultrasound Date Last Menstrual Period Date Ultra Sound Weeks Gestation 0 Eighteen To Twenty Week Donald Update Ultra Sound Date Fundal Height At Umbil Quickening Date Ultra Sound Latest Weeks Gestation Final Donald Confirmed By Final Donald Confirmed Date Final Donald Date Ultra Sound Latest Days Gestation 0 0 Menstrual History Last Menstrual Date Menses Monthly On Bcp Conception Prior Menses Frequency Hcg Plus Date Menarche Onset Age Delivery Information Delivery Date Delivery Type Labor Anesthesia Weeks Gestation Incision Type Labor Labor Length Hrs Delivered By Post Complications Tubal Sterilization Discharge Date Comments 3 Discharge Information Feeding Method Contraceptive Method Maternal HG B and HCT Levels
--- OUTSIDE RECORDS SUMMARY | 2024-10-12 02:12 | XMS_ITS | Data Portability ---
Author Organization [place] [facility] [address], Main Office Address [address] [place] [address] Care Team Providers Care Project Associate Name Role Phone GINNA YOUINDER Primary Care Provider Assessment No assessment recorded. Plan of Treatment Reminders Order Date Submit Date Provider Last Modified By Organization Details Last Modified Time Details Appointments None recorded. Lab HbA1c (hemoglobin A1c), blood 2023 024 [email or web address] 82 [facility], [address], [place], [address], 5 15:18:58 CMP, serum or plasma 2023 024 [email or web address] 82 [facility], [address], [place], [address], 5 15:19:10 HbA1c (hemoglobin A1c), blood 2022 023 [email or web address] [facility], [address], [place], [address], 3 09:14:53 CMP, serum or plasma 2022 023 [email or web address] [facility], [address], [place], [address], 3 09:14:53 microalbumi n, urine 2022 023 [email or web address] [facility], [address], [place], [address], 3 09:14:53 vitamin D, 25-hydroxy, total, serum 2022 023 [email or web address] [facility], [address], [place], [address], 3 09:14:53 urinalysis, complete 2022 023 [email or web address] [facility], [address], [place], [address], 3 09:14:54 lipid panel, serum 2022 023 [email or web address] [facility], [address], [place], [address], 3 09:14:53 CBC w/ auto diff 2022 023 [email or web address] [facility], [address], [place], [address], 3 09:14:54 Referral urologist referral 2022 023 [email or web address] Analisa Araujo [facility], [address], [place], [address], 3 08:35:35 Procedures None recorded. Surgeries None recorded. Imaging MAMMO, screening, digital, bilateral 2023 024 [email or web address] [facility], [address], [place], [address], 4 09:52:44 bone density 2023 024 [email or web address] [facility], [address], [place], [address], 4 08:00:01 Medication Orders lisinopril 40 mg tablet 2023 024 [facility], [place], [address], 4 14:58:21 metformin 1,000 mg tablet [address] [facility], [address], [place], [address], 4 17:19:31 Humulin 70/30 U-100 Insulin KwikPen 100 unit/mL subcutaneou s [address] [facility] [address] [facility], [address], Kristopher Saez, [place], [address], 4 17:19:31 OneTouch Ultra Test strips [address] [facility] [address], [address], [place], [address], 4 17:19:31 Humulin 70/30 U-100 Insulin K[facility] 100 unit[facility] 024 [facility] [address], [address], [place], [address], 4 10:19:41 simvastatin 10 mg tablet 2023 [facility] [address], [address], [place], [address], 4 10:19:42 lisinopril 20 mg tablet 2023 024 [facility] [address], [address], [place], [address], 4 10:19:42 lisinopril 20 mg tablet 2022 023 [facility], [address], [place], [address], 3 10:15:44 Patient TargetsNo targets recorded. Patient Instructions Encounter Date Encounter Id Patient Instructions Last Modified By Organization Details Last Modified Time 10/30/2023 [id number] dementia rating scale-2* Not available 10/30/2023 11:45:41 [...] I have no recommendations Depression Screening: Negative [email or web address] Not available 10/30/2023 10:34:04 Reason for Referral [...] and Address Organization Details Recorded Time Backache 003064177 Active Not Available [facility] 3 15:43:45 Abnormal weight loss 761290806 Completed Not Available [facility] 3 15:43:45 Type 2 diabetes mellitus without complicati on 293922181 Active 2021 Salina soni, RENAYJudy null, [facility] [employer] [facility] 3 09:44:15 Vitamin D deficiency 90413418 Completed Not Available [facility] 3 15:43:45 Diabetes mellitus 36274255 Active Not Available [facility] 3 15:43:45 Hyperlipid emia 04299127 Active 2022 Fabio You MD [address] [facility], [address], [address] , [facility] 3 10:12:13 Disorder of urinary bladder 14834918 Active 2022 Fabio You MD [address] [facility], [address], [address] [place] [address] , [facility] [employer] [facility] 3 10:12:41 Essential hypertensi on 46944922 Active 2022 Fabio You MD [address] [facility], [address], [address] , [facility] [employer] [facility] 3 10:13:24 Notes:Some problems listed i n Documents: #[id number], #[id number] could not be added to this patient's chart. Please review these documents and add these problems to the patient's chart manually as needed. Problem Notes None recorded. Procedures Surgical History Date Name Laterality Status Provider Name and Address Organization Details Recorded Time 10/30/19 24 Medicare Wellness CPT Code, subsequent completed Ana Cristina Hazel RN [facility] 10/30/2023 10:27:21 05/15/20 19 Most Recent Bone Density completed Not Available [facility] 08/08/2022 15:41:32 Appendectomy completed Not Available [facility] 08/08/2022 15:41:32 Imaging Results None recorded. Procedure [...] Available No t Available [employer] [facility] [address] [place] USE DIRECTED active Not Available Not Available No t Available Vitals Date Recorded Body mass index (BMI) Body height Oxygen saturation Oxygen saturation in Arterial blood by Pulse oximetry Heart rate Body weight Systolic blood pressure Diastolic blood pressure Provider Name and Address Organization Details Last Updated DateTime 2 23.3 kg/m2 162.56 cm 98 % 98 % 88 /min 51020.5 6 g 134 mm[Hg] 70 mm[Hg] Not Available [facility] 3 15:43:06 Date Recorded Body mass [...] 99 % 0 97 /min 97.3 [degF] 70200.1 5 g 144 mm[Hg] 74 mm[Hg] Not Available [facility] 3 15:43:06 Date Recorded Body height Body temperature Heart rate Oxygen saturation Oxygen saturation in Arterial blood by Pulse oximetry Body mass index (BMI) Body weight Systolic blood pressure Diastolic blood pressure Provider Name and Address Organization Details Last Updated DateTime 3 162.56 cm 97.6 [degF] 84 /min 98 % 98 % 23.7 kg/m2 17266.7 5 g 160 mm[Hg] 86 mm[Hg] Salina carrillo [facility] [employer] [facility] 3 09:48:43 Date Recorded Body height Body mass index (BMI) Body weight Body temperature Heart rate Oxygen saturation Oxygen saturation in Arterial blood by Pulse oximetry Systolic blood pressure Diastolic blood pressure Provider Name and Address Organization Details Last Updated DateTime 4 162.56 cm 23.8 kg/m2 49373.1 8 g 97.9 [degF] 80 /min 99 % 99 % 148 mm[Hg] 80 mm[Hg] Carmelina Montenegro [facility] [employer] [facility] 4 09:55:32 Date Recorded Pain severity - 0-10 verbal numeric rating [Score] - Reported Provider Name and Address Organization Details Last Updated DateTime 10/30/2023 0 Ana Cristina Hazel RN [facility] [employer] [facility] 10/30/2023 10:27:38 Date Recorded Body height Body mass index (BMI) Body weight Body temperature Heart rate Oxygen saturation Oxygen saturation in Arterial blood by Pulse oximetry Systolic blood pressure Diastolic blood pressure Provider Name and Address Organization Details Last Updated DateTime 4 162.56 cm 24.2 kg/m2 32072.5 2 g 97.4 [degF] 80 /min 98 % 98 % 150 mm[Hg] 68 mm[Hg] Salina carrillo [facility] [employer] [facility] 4 14:26:24 Social History Question Answer Notes LastModified by Organizat ion Details LastModified Time Tobacco Smoking Status Never Smoker Not Available [facility] 08/08/2022 15:41:30 Do You Have An Advance Directive? No [email or web address] Information not available 10/30/2023 What Is Your Level Of Alcohol Consumption? Occasional [id number] Information not available 08/08/2022 Are You Blind Or Do You Have Difficulty Seeing? No [email or web address] Information not available 10/30/2023 What Is Your Level Of Caffeine Consumption? Moderate [id number] Information not available 08/08/2022 Are You Deaf Or Do You Have Serious Difficulty Hearing? No [email or web address] Information not available 10/30/2023 What Type Of Diet Are You Following? REGULAR [email or web address] Information not available 10/30/2023 What Is Your Occupation? Retired [id number] Information not available 08/08/2022 Have There Been Any Changes To Your Family Or Social Situation? No [email or web address] Information not available 10/30/2023 What Is The Fluoride Status Of Your Home? Unknown Information not available 10/30/2023 Where Do You Live? SingleLevelHouse [email or web address] Information not available 10/30/2023 Are You Able To Care For Yourself? Yes [email or web address] Information not available 10/30/2023 Are You Blind Or Do Yo Have Difficulty Seeing? No [email or web address] Information not available 10/30/2023 Are You Deaf Or Do You Have Serious Difficulty Hearing? No [email or web address] Information not available 10/30/2023 Live Alone Of With Others? With Others [email or web address] Information not available 10/30/2023 What Was The Date Of Your Most Recent Tobacco Screening? 10/30/2023 [email or web address] Information not available 10/30/2023 Do You Have Any Pets? Yes [email or web address] Information not available 10/30/2023 Do You Use Your Seat Belt Or Car Seat Routinely? Yes [email or web address] Information not available 10/30/2023 Do You Have Smoke And Carbon Monoxide Detectors In Your Home? Yes [email or web address] Information not available 10/30/2023 Sex: Unknown Functional Status Question Answer Note LastModified by Organizat ion Details LastModified Time Do you have difficulty walking or climbing stairs? No [email or web address] Information not available 10/30/2023 Do you have transportation difficulties? No [email or web address] Information not available 10/30/2023 Are you able to walk? YESWOREST [email or web address] Information not available 10/30/2023 Do you have difficulty doing errands alone? No [email or web address] Information not available 10/30/2023 Are you able to care for yourself? Yes [email or web address] Information n ot available 10/30/2023 Do you have difficulty dressing or bathing? No [email or web address] Information not available 10/30/2023 What is your exercise level? Occasional [email or web address] Information not available 10/30/2023 Mental Status Question Answer Note LastModified by Organization D etails LastModified Time Do you have difficulty concentrating, remembering or making decisions? No [email or web address] Information no t available 10/30/2023 Family History Relationship Description Onset Age of this Age Resolved Age Notes LastModified by Organization Details LastModified Time Mother Diabetes mellitus [id number] Not available 08/08/2022 15:41:32 Mother Heart disease [id number].920 [id number] Not available 08/08/2022 15:41:32 Sister Diabetes mellitus [id number].615 [id number] Not available 08/08/2022 15:41:32 Sister Stented coronary artery [id number].757 [id number] Not available 08/08/2022 15:41:33 Father Heart disease MIGRATION.208 [id number] Not available 08/08/2022 15:41:33 Medical History No medical history recorded. Gynecological History Statement/Question Response Date of Last Pap Date of Last Mammogram 09/30/2020 Date of Last Colonoscopy Most Recent Bone Density 05/15/2019 Obstetrics History GPAL:G 0 P 0 0 0 0 Immunizations Vaccine Type Date Status Note Provider Nam e and Address Organization Details Recorded Time pneumococcal polysaccharide PPV23 1 completed Not Available [facility] 08/08/2022 15:46:08 Pneumococcal conjugate PCV 13 0 completed Not Available [facility] 02/08/2023 09:35:56 pneumococcal polysaccharide PPV23 4 completed Not Available [facility] 08/08/2022 15:46:08 Past Encounters Encounter ID Performer Location Encounter Start Date Encounter Closed Date Diagnosis/Indication Diagnosis SNOMED-CT Code Diagnosis ICD10 Code Diagnosis Note [id number] Fabio You MD [facility] [address] [facility] [place] [address] 11/25/2020 00:00:00 11/25/2020 13:14:17 [id number] Fabio You MD [facility] [address] [facility] [place] [address] 05/26/2021 00:00:00 05/26/2021 14:28:39 [id number] Fabio You MD [facility] Internal [facility] [address] [place] [address] 01/05/2022 00:00:00 01/05/2022 13:09:[id number] [facility] Internal Med [address] [place] [address] 07/27/2022 00:00:00 07/27/2022 11:37:[id number] [facility] Internal Med [address] [facility] [place] [address] 02/08/2023 09:34:30 02/08/2023 10:29:08 Diabetes mellitus 21341027 E11.9 under control Backache 016874601 M54.9 meds help Adult heal th examination 538238313 Z00.00 pap- not yetMammogr am-10/01/19Dexa- 05/2019Col onoscopy- does not want, had neg cologuard in 01/2892GHM09- 08/06/2013, and todayPrevn ar - 07/31/2019 ye exam- yearlyCOVI D Vacc- undecided Hyperlipidemia 76277401 E78.5 Disorder o f urinary bladder 17432299 N32.9 will write sed bladder, need urology Essential hypertension 96123189 I10 Long-term drug therapy 215851166 Z79.742 [id number] Fabio You MD [facility] Internal Med [address] [place] [address] 10/30/2023 09:51:27 10/30/2023 10:26:35 Diabetes mellitus 57436519 E11.9 NOT under control, to try Andry, take insulin as prescribed Backache 622914751 M54.9 meds help Adult heal th examination 912940353 Z00.00 Mammogram- 1D exa- 05/2019Col onoscopy- does not want, had neg cologuard in 01/2813AEY76- 05/30Prevn ar - 07/31/2019e ye exam- yearlyCOVI D Vacc- undecided Hyperlipidemia 27304370 E78.5 Disorder o f urinary bladder 50196771 N32.9 f/u with urology Essential hypertension 75433080 I10 does not want dose adjustment Postmenopausal state 764 99125 Z78.0 Screening mammography 24 448765 Z12.31 Screening for disorder 351024147 Z13.9 [id number] Fabio You MD [facility] [address] [place] [address] 04/02/2024 14:22:30 04/02/2024 15:00:16 Diabetes mellitus 52023337 E11.9 NOT under control, advised to watch diet, dose adjustment after the labs Backache 234221004 M54.9 meds help Adult heal th examination 463867274 Z00.00 Mammogram- 09/30/2020 - Has not doneDexa- 05/2019- Has not doneColono scopy- does not want, had neg cologuard in 01/2827UCS48- 05/30Prevn ar 13- 07/31/2019F DEYANIRA- Declined- 2023eye exam- yearlyCOVI D Vacc- undecided Hyperlipidemia 61497166 E78.5 under control Disorder o f urinary bladder 30080773 N32.9 needs f/u urology Essential hypertension 39661454 I10 ^ the dose Type 2 conrado betes mellitus without complication 740466113 E11.9 Health Concerns Section Related Observation LastModified by Organization Detai ls LastModified Time None Recorded Concern Status LastModified by Organization Details LastModified Time None Recorded Advance Directives Directive N: Payers Encounter Date Sequence Insurance Name Policy Number Policy Mariscal Covered Member ID Mariscal Member ID Guarantor Name 02/08/2023 1 [facility] (MEDICARE REPLACEMENT/A DVANTAGE - HMO) [id number] Stacy Graves [id number] Stacy Graves 10/30/2023 1 [facility] (MEDICARE REPLACEMENT/A DVANTAGE - HMO) [id number] Stacy Graves [id number] Stacy Graves 04/02/2024 1 [facility] (MEDICARE REPLACEMENT/A DVANTAGE - HMO) [id number] Stacy Graves [id number] Stacy Graves Notes Date Note Type Note [...] bathroom frequently Fabio You MD [address], [place], [address], [employer] [facility] 02/08/2023 10:18:32 10/30/2023 text/html Here for routine [...] physical therapy, Fabio You MD [address], [address], [place], [address], [employer] 10/30/2023 11:45:46 04/02/2024 text/html Here for routine [...] through physical therapy, Fabio You MD [address] [facility], [facility] [address], [place], [address], [place] [facility] [employer] 04/02/2024 14:58:19 OBGyn Episode No OBEpisode recorded.
--- NOTE | 2024-10-12 07:18 | WPDHPUPDATE1 ---
History and Physical Update Update Date/Time: 10/12/24 07:18 History and Physical has been reviewed, including an updated exam of the patient. There are NO changes in the patient's condition. Risks, benefits, and alternatives have been discussed and questions answered. Patient agrees to proceed with procedure.
[2024-11-25 13:34] VITALS: BMI 23.8
--- NOTE | 2024-12-05 14:13 | PM.IMHP ---
H&P: HPI History of Present Illness Date/Time: 12/05/24 14:13 Chief Complaint: pelvic organ prolapse. Stress incontinence Narrative: pelvic organ prolapse and stress incontinence. Desires surgical correction Review of Systems Review of Systems: All systems reviewed & are unremarkable except as noted in HPI and [facility] Social History Social History Smoking status: Never smoker Alcohol intake: current Alcohol use details: 1 per month Substance use: never Living arrangements: with family Additional living arrangements comments: Sister Spiritual care concerns: No Meds Home Medications and Allergies Home Medications ?Medication ?Instructions ?Recorded ?Confirmed ?Type insulin NPH-regular 70-30 U-100 25 unit subcut BID diabetes 10/01/24 10/01/24 History insulin 100 unit/mL subcutaneous pen (Humulin 70/30 U-100 KwikPen) lisinopril 40 mg tablet 40 mg PO DAILY 10/01/24 10/01/24 History metformin 1,000 mg tablet 1,000 mg PO BID 10/01/24 10/01/24 History mobobzkv-myp-tjfmfu-choline-bioflavonoids 1 tablet PO DAILY 10/01/24 11/25/24 History 111 mg-111 mg-100 mg tablet simvastatin 10 mg tablet 10 mg PO QPM 10/01/24 10/01/24 History Allergies Allergy/AdvReac Type Severity Reaction Status Date / Time No Known Allergies Allergy Verified 11/25/24 13:37 Exam Narrative: cystocele beyond the introitus. Dodson at +2. Urethral mobility Assessment and Plan Assessment and plan (1) CEE (stress urinary incontinence, female): Code(s): N39.3 - Stress incontinence (female) (male) Status: Acute (2) Uterine prolapse: Code(s): N81.4 - Uterovaginal prolapse, unspecified Status: Acute Plan robotic sacral colpopexy and urethral sling. Risks, benefits, alternatives all outlined in office chart
[2024-12-07] VITALS (9 sets, daily range): BP systolic 101–136; BP diastolic 45–56; PULSE 65–80; RESP 14–16; TEMP 36.1–36.4; O2SAT 95–100; BMI 22.6
--- NOTE | 2024-12-07 04:37 | WPDHPUPDATE1 ---
History and Physical Update Update Date/Time: 12/07/24 04:37 History and Physical has been reviewed, including an updated exam of the patient. There are NO changes in the patient's condition. Risks, benefits, and alternatives have been discussed and questions answered. Patient agrees to proceed with procedure.
[2024-12-07] MEDS: LACTATED RINGERS 1,000 ML 30 ML IV CONT ×2 (10:45→15:34)
[2024-12-07] MEDS: ACETAMINOPHEN 500 MG TABLET 1000 MG PO (10:51)
[2024-12-07] MEDS: KETOROLAC 15 MG/ML VIAL (*BKC) IV PUSH ×2 (10:52→19:48)
[2024-12-07] MEDS: BUPIVACAINE/EPINEPHRINE 0.5% 50 ML VIAL 60 ML INFILTRATE (11:25)
--- NOTE | 2024-12-07 12:07 | P.HP_ITS ---
H&P: HPI History of Present Illness Date/Time: 12/07/24 12:07 Chief Complaint: Pelvic organ prolapse Narrative: This patient is 6-year-old female with pelvic organ prolapse. We agreed to perform robotic assisted supracervical hysterectomy and bilateral salpingo- oophorectomy. Dr. Caballero perform the sacrospinous ligament fixation. She understands risks, benefits, and alternatives. She has completed informed consent process and is ready to proceed. The patient understands the details of the procedure. The procedure has been explained in detail. She understands the risks. She understands that injuries may occur that result in hospitalization, more surgery, and severe illness. She understands risk of hemorrhage and infection. She denies any chest pain or shortness of breath. She denies any nausea, vomiting, fever, chills. Review of Systems Review of Systems: All systems reviewed & are unremarkable except as noted in HPI and below Constitutional: Constitutional: Denies chills, Denies fatigue, Denies fever(s) and Denies weakness Eyes: Eyes: Denies blurry vision, Denies change in vision, Denies loss of peripheral vision, Denies loss of vision, Denies other visual disturbances and Denies eye pain ENT: Denies vertigo, Denies dizziness, Denies hearing loss, Denies mouth pain, Denies nasal obstruction, Denies neck mass and Denies neck pain Cardiovascular: Cardiovascular: Denies chest pain, Denies diaphoresis, Denies syncope, Denies leg edema and Denies dyspnea Respiratory: Respiratory: Denies chest congestion, Denies cough, Denies hemoptysis, Denies dyspnea and Denies wheezing Gastrointestinal: Gastrointestinal: Denies abdominal pain, Denies constipation, Denies diarrhea, Denies nausea and Denies vomiting Genitourinary: Genitourinary: Denies hematuria, Denies change in libido, Denies nocturia, Denies genital lesions, Denies flank pain and Denies urinary urgency Musculoskeletal: Musculoskeletal: Denies abnormal gait, Denies back pain, Denies myalgias, Denies arthralgias, Denies joint swelling, Denies muscle weakness and Denies neck pain Integumentary/Breasts: Skin/Breast: Denies swelling, Denies breast pain, Denies breast mass, Denies dry skin, Denies nipple discharge, Denies unusual bruising and Denies jaundice Neurologic: Denies Neuro-related abnormal movements, Denies Abnormal speech present, Denies abnormal gait, Denies behavioral changes, Denies confusion, Denies vertigo, Denies dizziness, Denies syncope, Denies loss of vision, Denies memory loss, Denies convulsions and Denies weakness Psychiatric: Psychiatric: Denies abnormal sleep pattern, Denies behavioral changes, Denies change in libido, Denies confusion, Denies depression, Denies anhedonia and Denies memory loss Endocrine: Endocrine: Reports no additional endocrine complaints, Denies change in libido and Denies fatigue Hematologic/Lymphatic: Hematologic/Lymphatic: Reports no additional hematologic/lymphatic complaints Allergic/Immunologic: Allergic/Immunologic: Reports no additional allergic/immunologic complaints and Denies wheezing PMFSH Social History Social History Smoking status: Never smoker Alcohol intake: current Alcohol use details: 1 per month Substance use: never Living arrangements: with family Additional living arrangements comments: Sister Spiritual care concerns: No Meds Home Medications and Allergies Home Medications ?Medication ?Instructions ?Recorded ?Confirmed ?Type insulin NPH-regular 70-30 U-100 25 unit subcut BID diabetes 10/01/24 10/01/24 History insulin 100 unit/mL subcutaneous pen (Humulin 70/30 U-100 KwikPen) lisinopril 40 mg tablet 40 mg PO DAILY 10/01/24 10/01/24 History metformin 1,000 mg tablet 1,000 mg PO BID 10/01/24 10/01/24 History muigeiln-pfz-yyrccp-choline-bioflavonoids 1 tablet PO DAILY 10/01/24 11/25/24 History 111 mg-111 mg-100 mg tablet simvastatin 10 mg tablet 10 mg PO QPM 10/01/24 10/01/24 History Allergies Allergy/AdvReac Type Severity Reaction Status Date / Time No Known Allergies Allergy Verified 11/25/24 13:37 Exam Const: General: cooperative, healthy appearing, comfortable and no acute distress Orientation/consciousness: oriented to person, oriented to place and oriented to time HENMT: Head: normal to inspection Ears: external ears normal Face/Nose/Sinus: Normal external nose present and normal facial exam Face and sinus: normal facial exam Eyes: General: appearance normal, both eyes and all related structures Neck: Neck: normal visual inspection, trachea midline and supple Resp: Auscultation: clear to auscultation bilaterally, no crackles, no rales, no rhonchi and no wheezes Cardio: Rate: regular rate Rhythm: regular rhythm Heart sounds: no click, no murmurs and no rubs GI: GI Palp: No abdominal tenderness, No Soft to palpation, No Tenderness to palpation present (GI) and No Palpable mass present Auscultation: normal bowel sounds Skin: General skin exam: normal color and no rashes or lesions noted Neuro: General: oriented to person, oriented to place and oriented to time Extrem: General: normal to inspection, no joint enlargement, no clubbing, cyanosis or edema, no pedal edema and no calf tenderness Psych: Appearance: grossly normal Mental Status: mental status grossly normal Speech and movement: Normal speech and movement present Assessment and Plan Assessment and plan (1) Uterine prolapse: Code(s): N81.4 - Uterovaginal prolapse, unspecified Status: Acute Assessment and Plan: This patient is 6-year-old female with pelvic organ prolapse. We agreed to perform robotic assisted supracervical hysterectomy and bilateral salpingo- oophorectomy. Dr. Caballero perform the sacrospinous ligament fixation. She understands risks, benefits, and alternatives. She has completed informed consent process and is ready to proceed.
--- NOTE | 2024-12-07 12:09 | WPDHPUPDATE1 ---
History and Physical Update Update Date/Time: 12/07/24 12:09 History and Physical has been reviewed, including an updated exam of the patient. There are NO changes in the patient's condition. Risks, benefits, and alternatives have been discussed and questions answered. Patient agrees to proceed with procedure.
--- NOTE | 2024-12-07 12:41 | WPDANESEPPF ---
Anes - Initial Pre Proc Eval Procedure: Operation Date: 12/07/24 12:00 Proposed Procedures p Robotic Sacrocolpopexy, Urethral Sling, Possible Cystocele Repair, Possible Rectocele Repair - Eduardo Young MD s Robotic Supracervical Hysterectomy with Bilateral Salpingo-oophorectomy - Amrit Mckeon MD Date/Time: 12/07/24 12:41 Surgeon: Eduardo Young MD Pre Op Diagnosis: uterine prolpase, cystocele, stress incon, rectoce Patient Data Age: 69 Gender: F Height: 1.63 m Weight: 60 kg Last Vital Signs Temp 36.1 C L 10/01/24 14:27 Pulse 86 10/01/24 14:27 Resp 16 10/01/24 14:27 Pulse Ox 100 10/01/24 14:27 O2 Del Method Room Air 10/01/24 14:27 Allergies Allergy/AdvReac Type Severity Reaction Status Date / Time No Known Allergies Allergy Verified 12/07/24 12:14 Home Medications ?Medication ?Instructions ?Recorded ?Confirmed ?Type insulin NPH-regular 70-30 U-100 25 unit subcut BID diabetes 10/01/24 12/07/24 History insulin 100 unit/mL subcutaneous pen (Humulin 70/30 U-100 KwikPen) lisinopril 40 mg tablet 40 mg PO DAILY 10/01/24 12/07/24 History metformin 1,000 mg tablet 1,000 mg PO BID 10/01/24 12/07/24 History xhtwobvd-gky-xttayk-choline-bioflavonoids 1 tablet PO DAILY 10/01/24 11/25/24 History 111 mg-111 mg-100 mg tablet simvastatin 10 mg tablet 10 mg PO QPM 10/01/24 12/07/24 History Laboratory Tests 12/07/24 10:56 POC Capillary Glucose 119 H mg/dl (65-105) Patient hx anesthesia problems: none Family hx anesthesia problems: none Results Review: All pre-operative results and documents have been reviewed as part of the pre-operative evaluation. [facility] Social History Social History Smoking status: Never smoker Alcohol intake: current Alcohol use details: 1 per month Substance use: never Living arrangements: with family Additional living arrangements comments: Sister Spiritual care concerns: No Anes - Eval Final PreProcedure Day of Procedure 12/07/24 12:41 Patient weight: normal Heart: regular rate and rhythm Lungs: clear to auscultation Airway: Mallampati scale Neurological: alert and oriented Last oral intake: >/= 8 hours ASA classification: III Emergent: no Anesthetic plan: proceed Anesthesia type and monitoring: general ETT and standard monitoring Results Review: All pre-operative results and documents have been reviewed as part of the pre-operative evaluation. Informed Consent: The patient's anesthetic plan and its attendant risks and benefits were discussed with the patient/family/POA. Questions were solicited and answers provided to the satisfaction of the patient/family/POA.
[2024-12-07] MEDS: ceFAZolin 2 GM/D5W 50 ML 2 GM/50 ML BAG IVPB (12:48)
[2024-12-07] MEDS: metroNIDAZOLE 500 MG/ISO 100ML 500 MG/100 ML BAG 100 MG IVPB ×2 (12:53→21:56)
--- NOTE | 2024-12-07 13:46 | S_PTH ---
PATIENT: Stacy Graves LOC: [facility] U#:[id number] AGE/SX: 69/F ROOM: RE12/07/[address]: Eduardo Young MD : 1955 BED: DIS: 12/08/2024 SPEC #: [id number] RECD: 12/08/24 08:18 STATUS: [place]ANN[place] REQ #: [id number] MARIA VICTORIA: 12/07/24 13:[address]: Amrit Mckeon DEPT: [facility] Surgical RECD BY: Buddy Laura ENTERED: 12/08/24 08:18 SP TYPE: Surgical OTHR DR: MD Theodore Avina, Tissues: A - Uterus Procedures: Hematoxylin and Eosin Stain Gross and Microscopic Level 5
--- NOTE | 2024-12-07 13:48 | P.OP_ITS ---
Procedure Note - Detailed Date of Procedure 12/07/24 Pre-op Diagnosis uterine prolpase, cystocele, stress incon, rectoce Post-op Diagnosis Same Procedure Performed Robotic assisted supracervical hysterectomy with bilateral salpingo-oophorectomy Surgeon Amrit Mckeon MD Anesthesia General Indications pelvic organ prolapse Findings Pedunculated uterine fibroid, normal-appearing tubes and Description of Procedure This patient was taken to the operating room. She was prepped and draped in the dorsal lithotomy position after induction of general anesthesia. the robot trocars and docking was performed by Dr. Young. a tenaculum was applied to the vaginal mucosa at the cervicovaginal juncture posteriorly. This was done with a speculum and tenaculum. The speculum was placed. The cervix was grasped with a tenaculum. Trocars were placed by Dr. Young. The location of the ureters was identified at the pelvic brim. The ovaries were grasped and raised. The infundibulopelvic ligaments were cauterized and transected with LigaSure cautery. This was all done in a bilateral fashion. The para ovarian tissue was cauterized and transected with LigaSure cautery bilaterally. Moving around the ovary into the broad ligament the tissue was cauterized transected with The vessel sealer cautery. The round ligaments were cauterized transected with the vessel sealer cautery this was all done in a b ilateral fashion. In a stepwise fashion along the lateral aspects of the uterus the round ligament and broad ligaments were cauterized transected down to the level of the uterine arteries. The cervix was transected using unipolar cautery. the uterus was bifurcated down to the level the cervix. The uterus and bilateral tubes and ovaries were laid off to the side for Dr. Young to remove later. The remainder of the procedure was performed by Dr. Young. Urine Output 800 Drains Yes Packing No Pathology Yes Complications No immediate complications Condition Stable Disposition Floor
--- NOTE | 2024-12-07 15:34 | W.PM.PROC2 ---
Procedure Note - Detailed Date of Procedure 12/07/24 Pre-op Diagnosis uterine prolpase, stress incontinence Post-op Diagnosis Same Procedure Performed Robotic assisted laparoscopic sacral colpopexy Urethral sling Cystoscopy Surgeon Eduardo Young MD Anesthesia General Indications A woman with uterine prolapse as well as stress incontinence. She desires surgical correction. She is here for the above. She understands risks of bleeding, infection, diskitis, damage to surrounding organs, bowel injury, bowel obstruction, mesh related complications including exposure and extrusion, postoperative voiding dysfunction including incontinence and retention, need for ancillary procedures, dyspareunia, recurrence of prolapse, and other perioperative intraoperative postoperative complications. She agrees to proceed. Findings See below Description of Procedure She was correctly identified. Informed consent obtained. She from the operating room. She was given general anesthesia. She was given appropriate perioperative antibiotics. She was placed a low lithotomy position. Pressure points were padded. A time-out performed. I marked out the skin 3 fingerbreadths cephalad to the umbilicus. I anesthetized the skin. I incised the skin. I dissected down to the fascia. I grasped the fascia with Agustin clamps. I entered the fascia sharply in a Armstrong type technique. I placed sutures for later fascial closure. I placed a midline trocar. I examined the abdomen. There is no sign of any injury. Under direct vision I placed 2 additional trocars in the right upper quadrant and 2 additional trocars the left upper quadrant. She was placed in steep Trendelenburg. The robot was docked. Her search marketing coordinator completed their portion of the procedure. Please see that operative report for details. I then sat at the console. The Sizer in the vagina created plane on the anterior and posterior vaginal wall. I took great care not to injure the vagina, bladder, or rectum. I introduced the mesh into the abdomen. I sewed the anterior leaflet of mesh on the anterior vaginal wall. I sewed the posterior leaflet of mesh on the posterior vaginal wall. This was done with several sutures of 2 0 [place]. I reflected the colon laterally. I opened the posterior peritoneum over the sacral promontory. I carried this into the cul-de-sac. I freed up the edges for later retroperitonealization. I located the anterior longitudinal ligament the sacrum. I cleaned off all fatty tissues. I then tensioned my mesh appropriately. I did a vaginal exam the bedside. I assured prolapse reduction without undue tension. I then sewed the proximal leaflet of mesh onto the anterior longitudinal ligament of the sacrum with 3 sutures of 2 0 [place]. I then used a 2 0 Monocryl to completely and meticulously retroperitonealized all mesh. I allowed the colon to go back to its normal anatomic location. There is no sign of any impingement. The specimen was then removed. All ports removed. Fascia was tied down. Additional suture was placed fully close the fascia. Skin was closed with Monocryl and surgical glue. She was repositioned and prepped for urethral sling. I marked out the inner thigh incisions. I anesthetized the skin and made the incisions. I then anesthetized the anterior vaginal wall at the mid urethra. I made a 1 cm incision. I dissected out laterally taking great care not to injure the refilled vaginal wall. I passed the helical trocars. I did this 1st on the left and then on the right. This was done from the thigh incision towards the vaginal incision. Sling was connected to the trocars and brought out the thigh incision. I tensioned the sling appropriately. I cut and the plastic sheaths. I closed the incision with 2 0 Vicryl. I then performed cystoscopy. There was no tumors or surgical artifact. Bilateral ureteral patency was documented by placing guidewires up both ureters. There is no surgical artifact in the bladder or urethra. I cut the excess sling material. Close incision with glue. She was awakened and transferred to PACU in stable condition. Implants Sacral colpopexy mesh Urethral sling Estimated Blood Loss 20 Urine Output 800 Packing No Pathology None sent Complications No immediate complications Condition Stable Disposition PACU
[2024-12-07] MEDS: INSULIN HUMAN REGULAR (*BKC) 100 UNITS/ML 6 UNITS SUB-Q (16:02)
--- NOTE | 2024-12-07 17:12 | PC.NURSE ---
This patient, Stacy Graves, was received from PACU on 12/07/24 at 1712. Patient/family oriented to unit policies and routines.
[2024-12-07] MEDS: KCL 20 MEQ/0.45% NS 1,000 ML 100 ML IV CONT (18:08)
[2024-12-07] MEDS: ceFAZolin 1 GM/NS 50 ML 1 GM/50 ML BAG IVPB (21:19)
[2024-12-07] MEDS: SIMVASTATIN 10 MG TABLET PO (21:19)
[2024-12-08 00:05] VITALS: BP 118/51; PULSE 89; RESP 16; TEMP 36.7; O2SAT 98
[2024-12-08] MEDS: ACETAMINOPHEN 325 MG TABLET 650 MG PO (02:05)
[2024-12-08] MEDS: KCL 20 MEQ/0.45% NS 1,000 ML 100 ML IV CONT (03:53)
[2024-12-08 04:00] VITALS: BP 110/46; PULSE 90; RESP 16; TEMP 36.7; O2SAT 96
[2024-12-08] MEDS: ceFAZolin 1 GM/NS 50 ML 1 GM/50 ML BAG IVPB (05:01)
[2024-12-08] MEDS: metroNIDAZOLE 500 MG/ISO 100ML 500 MG/100 ML BAG 100 MG IVPB (05:33)
[2024-12-08 07:45] VITALS: BP 127/44; PULSE 84; RESP 18; TEMP 37.2; O2SAT 100
--- NOTE | 2024-12-08 08:48 | WPDANESPN ---
Anes - Prog Note Post-Op Date/Time: 12/08/24 08:48 Cardiovascular status: normal Respiratory status: normal Airway patency: baseline Mental status: baseline Post-Op hydration status: normal Vital Signs: Last Vital Signs Temp 37.2 C 12/08/24 07:45 Pulse 84 12/08/24 07:45 Resp 18 12/08/24 07:45 BP 127/44 L 12/08/24 07:45 Pulse Ox 100 12/08/24 07:45 O2 Del Method Room Air 12/08/24 07:30 O2 Flow Rate 8 12/07/24 16:05 Pain Score (VAS): 2 I/O: Intake & Output 12/07/24 12/08/24 12/08/24 23:59 07:59 15:59 Intake Total 650 1725 Output Total 475 1350 Balance 175 375 12/07/24 12/07/24 12/07/24 10:56 15:49 16:43 POC Capillary Glucose 119 H 247 H 259 H 12/07/24 19:54 POC Capillary Glucose 228 H Post-procedural complaints: none Patient Feedback: Patient satisfied with anesthetic care.
[2024-12-08] MEDS: INSULIN ASPART (*BKC) 100 UNITS/ML SUB-Q (09:11)
[2024-12-08] MEDS: DOCUSATE SODIUM 100 MG CAPSULE PO (09:14)
[2024-12-08] MEDS: ENOXAPARIN 30 MG/0.3 ML SYRINGE SUB-Q (09:14)
== END 2024-12-08 10:20 | disposition home or self-care (01) ==
LOC: ANHSURGERY 15:43 → ANHOB2 17:19
PROVIDERS: Obstetrics & Gynecology; PCP Internal Medicine; Visit Provider Urology
PROC: (CPT 57425; principal; 2024-12-07 12:00)
PROC: (CPT 58542; 2024-12-07 12:00)
DX: N81.4 Uterovaginal prolapse, unspecified (principal); N39.3 Stress incontinence (female) (male); D25.2 Subserosal leiomyoma of uterus; Z79.4 Long term (current) use of insulin
CPT/HCPCS: 58542; 57425; 57288; S2900 ×2; 82948; 88307; 99199; A9270; C1771; C1781; J0690; J1100; J1171; J1650; J1815; J1836; J1885; J2250; J2405; J2704; J7030; J7120